=== PATIENT | female | born 1955 ===

== ENCOUNTER 2017-12-08 07:36 | Day surgery (SDC) | payer OTHER ==
[2017-12-08] MEDS ORDERED: ANCEF/STERILE WATER 2 GM/20 ML IV NR (10:01)
--- NOTE | 2017-12-08 10:06 | Anesthesia Consultation ---
Anesthesia Consult and Med Hx - Airway Anesthetic Teeth Evaluation: Good ROM Head & Neck: Adequate Mental/Hyoid Distance: Adequate Mallampati Class: Class III Intubation Access Assessment: Probably Good - Pulmonary Exam CTA: Yes - Cardiac Exam Cardiac Exam: RRR - Pre-Operative Health Status ASA Pre-Surgery Classification: ASA1 Proposed Anesthetic Plan: General - Pre-Anesthesia Comment Pre-Anesthesia Comments: 62y F otherwise healthy for hysteroscopy and D&C - Pulmonary Hx Asthma: No (DUE TO ALLERGIES) Home Oxygen Therapy: No - Cardiovascular System Hx Hypertension: No Hx Coronary Artery Disease: No - Central Nervous System Hx Seizures: No CVA: No Hx Psychiatric Problems: No - Endocrine Hx Renal Disease: No Hx Liver Disease: No Hx Insulin Dependent Diabetes: No Hx Non-Insulin Dependent Diabetes: No Hx Thyroid Disease: No - Other Systems Hx Alcohol Use: Yes (SOCIALLY) Hx Substance Use: No Hx Cancer: No
--- NOTE | 2017-12-08 10:07 | Anesthesia Day of Surgery ---
Anesthesia Day of Surgery - Day of Surgery Patient Examined: Yes Patient H&P Reviewed: Yes Patient is NPO: Yes Beta Blockers: No Cardiac Clearance: Yes Pulmonary Clearance: Yes Rafa's Test: N/A
--- NOTE | 2017-12-08 10:17 | Short Stay Summary ---
Short Stay Documentation Date of service: 12/08/17 Narrative H&P: Patient is a 62 year old female who has a known history of fibroids who presented with postmenopausal bleeding after beginning hormone replacement therapy at an outside physician - History Principal diagnosis: Post menopausal bleeding H&P: obtained from office Past Medical History: No medical history Social history: - Allergies and Medications Current Medications: Allergies No Known Allergies Allergy (Verified 12/06/17 11:58) Home Medications Medication Instructions Recorded Confirmed Last Taken Type HYDROcodone/APAP 5-325 [Bandy 1 each PO Q6HR PRN 12/06/17 12/08/17 2 Days Ago History 5/325] ~12/06/17 Norethindrone Acetate [Aygestin] 5 mg PO BID 12/06/17 12/08/17 12/08/17 05:30 History Active Medications Cefazolin Sodium (Ancef/Sterile Water 2 Gm/20 Ml) 2 gm IV PREOP NR Stop: 12/08/17 12:00 Famotidine (Pepcid) 20 mg PO PREOP NR Stop: 12/08/17 12:00 Lactated Ringer's (Lactated Ringers) 1,000 mls @ 75 mls/hr IV DIRECT MAXINE Midazolam HCl (Versed) 2 mg IV PREOP NR Stop: 12/08/17 23:59 - Physical exam General appearance: no acute distress Integumentary: no rash Lungs: Clear to auscultation, Normal air movement Breasts: deferred Heart: Regular rate, Normal S1, Normal S2 Gastrointestinal: normal, normoactive bowel sounds Female Genitourinary: other (enlarged uterus consistent with fibroids) Rectal Exam: deferred Extremities: no ischemia, No edema - Brief post op/procedure progress note Date of procedure: 12/08/17 Pre-op diagnosis: Postmenopausal bleeding, fibroids Post-op diagnosis: same Procedure: D&C, Hysteroscopy Anesthesia: MAC Findings: Thickened endometrium Surgeon: ARIAN RODAS Estimated blood loss: minimal Pathology: list (endometrial curretings) Specimen disposition: to lab Condition: stable - Hospital course Hospital course: unremarkable - Disposition Condition at discharge: Good Disposition: DC-[id number] TO HOME OR SELFCARE Short Stay Discharge Plan Activity: advance as tolerated Weight Bearing Status: Weight Bear as Tolerated Diet: regular Follow up with: ARIAN RODAS MD [Staff Physician] - 14 Days Prescriptions: HYDROcodone/APAP 5-325 [Bandy 5-325 mg TAB] 2 each PO Q6HR PRN #40 tablet PRN Reason: Pain
[2017-12-08] MEDS ORDERED: NACL 0.9% IR ONE ×2 (10:35)
[2017-12-08] MEDS ORDERED: SILVER NITRATE TP ONE (10:35)
[2017-12-08] MEDS ORDERED: VERSED IV NR (11:00)
[2017-12-08] MEDS ORDERED: LACTATED RINGERS 1,000 ML IV SCH ×2 (11:00→12:00)
[2017-12-08] MEDS ORDERED: PEPCID PO NR (11:00)
[2017-12-08] MEDS ORDERED: ANCEF/STERILE WATER 2 GM/20 ML 2 GM/20 ML SYRINGE IV NR (11:00)
[2017-12-08] MEDS ORDERED: ZOFRAN IV PRN (11:03)
[2017-12-08] MEDS ORDERED: TORADOL IV PRN (11:03)
[2017-12-08] MEDS ORDERED: DILAUDID IV PRN (11:03)
[2017-12-08] MEDS ORDERED: DEMEROL IV PRN (11:03)
--- NOTE | 2017-12-08 11:33 | Operative Report ---
Operative Report Operative Report: Preoperative diagnoses: Postmenopausal bleeding and fibroids Postoperative diagnosis: Same Procedure: D and C with hysteroscopy Surgeon: Prachi House M.D. Anesthesia: MAC EBL: Minimal Urine output: 100 mL clear Complications: None Specimens: Endometrial curettings Procedure: Patient was taken to the OR with IV running and in place. She will probably identified as herself. She was given adequate anesthesia. She was then placed in the dorsal lithotomy position and prepped and draped in normal sterile fashion. Attention was turned to the patient's vagina. Her bladder was then drained of approximately 100 mL of clear yellow urine. A bivalve speculum was placed the patient's vagina. Cervix was visualized and grasped with a single-tooth tenaculum. The cervix was then gently dilated up to approximately 21 mm. The uterus was gently sounded to approximately 11 cm in length. Following this, the hysteroscope was introduced into the uterine cavity the cavity was fully visualized. There was thickened tissue throughout the cavity as well as the presence of some submucosal fibroids. Once this scope was removed, a curette was used to remove contents of the uterine lining until there was a gritty texture noted in all 4 quadrants of the uterus. A second look was taken with the hysteroscope. And one final pass with the curet was made There was excellent hemostasis noted at the end of this portion of the procedure. Silver nitrate was used to cauterize a point of bleeding on the exocervix. At this point all instruments were removed from the patient's vagina. She was then awakened and taken to recovery in stable condition. She tolerated the procedure well
--- NOTE | 2017-12-08 11:35 | Post Anesthesia Evaluation ---
- Post Anesthesia Evaluation Patient Participated: Yes Airway Patent: Yes Stable Respiratory Function: Yes Nausea/Vomiting: No Temp > 96.8F: Yes Pain Manageable: Yes Adequeate Hydration: Yes Anesthesia Complications: No Block Receding Appropriately: Not Applicable Patient on Ventilator: No
[2017-12-08] MEDS ORDERED: TORADOL ONE (11:42)
[2017-12-08 16:36] VITALS: BP 136/79
== END 2017-12-08 13:05 | disposition home or self-care (01) ==
LOC: OR 07:36
PROVIDERS: ATTEND Obstetrics & Gynecology
DX: N95.0 Postmenopausal bleeding (principal)
CPT/HCPCS: 58120; 88305; A4217; J1885